=== PATIENT | female | born 1970 | race Caucasian/White ===

== ENCOUNTER 2019-06-28 15:42 | Emergency (ER) | payer OTHER ==
[~2019-06-28] VITALS: Ht 170.2 cm; Wt 90.7 kg
[2019-06-28 15:45] VITALS: BP 154/109
[2019-06-28] MEDS ORDERED: OMEPRAZOLE40 MG PO (15:53)
[2019-06-28] MEDS ORDERED: LOSARTAN POTAS100 MG PO (15:53)
[2019-06-28] MEDS ORDERED: ZYRTEC10 M5 PO (15:53)
[2019-06-28] MEDS ORDERED: SPIRONOLACTONE25 MG PO (15:53)
[2019-06-28] MEDS ORDERED: VITAMIN D1000 UNI2 PO (15:54)
[2019-06-28] MEDS ORDERED: VITAMIN E400 UNI5 PO (15:54)
[2019-06-28] MEDS ORDERED: MEGA BIOTIN10000 MCG PO (15:54)
[2019-06-28] MEDS ORDERED: AZELASTINE205.5 MCG/ NARES (15:55)
[2019-06-28] MEDS ORDERED: CALCIUM500 MG PO (15:55)
[2019-06-28] MEDS ORDERED: FLONASE 0.05%50 MCG NARES (15:55)
== END 2019-06-28 16:43 | disposition home or self-care (01) ==
LOC: M.ERS 15:42
DX: S61.217A Laceration without foreign body of left little finger without damage to nail, initial encounter (principal); I10 Essential (primary) hypertension; Z88.1 Allergy status to other antibiotic agents; Z88.5 Allergy status to narcotic agent; W26.8XXA Contact with other sharp object(s), not elsewhere classified, initial encounter; Y93.89 Activity, other specified; Y92.89 Other specified places as the place of occurrence of the external cause; Y99.8 Other external cause status